=== PATIENT | male | born 1960 | race African-American/Black ===

== ENCOUNTER 2019-06-23 14:08 | Emergency (ER) | payer OTHER ==
--- NOTE | 2019-06-23 14:27 | PDOC ---
Rapid Medical Evaluation Time Seen by Provider: 06/23/19 14:25 Medical Evaluation: 06/23/19 14:25 HPI: 58 y/o w/ PMH of HTN presents with head injury about 9 am this am, now has dizziness and nausea, took motrin at job site PE: No laceration no gross deficits ORDERS: CT and tylenol 06/23/19 14:27 Discharge Disposition - Diagnosis Closed head injury - Referrals - Patient Instructions - Post Discharge Activity
[2019-06-23] MEDS ORDERED: ACETAMINOPHEN 500 MG TABLET (FP) PO ONE (14:28)
[2019-06-23 14:30] VITALS: BP 149/103; PULSE 89; TEMP 97.8; BMI 34.1
[2019-06-23] MEDS ORDERED: ACETAMINOPHEN 500 MG TABLET (FP) ONE (15:16)
--- NOTE | 2019-06-23 16:23 | PDOC ---
History of Present Illness - General Chief Complaint: Injury Stated Complaint: INJURY Time Seen by Provider: 06/23/19 14:25 History Source: Patient Exam Limitations: No Limitations Past History - Travel Traveled outside of the country in the last 30 days: No Close contact w/someone who was outside of country & ill: No - Past Medical History Allergies/Adverse Reactions: Allergies Allergy/AdvReac Type Severity Reaction Status Date / Time Penicillins Allergy Verified 06/23/19 14:27 Home Medications: Ambulatory Orders Hydrochlorothiazide [Hctz -] 25 mg PO DAILY 06/23/19 Losartan Potassium [Cozaar -] 50 mg PO DAILY 06/23/19 Verapamil HCl [Verapamil ER] 240 mg PO DAILY 06/23/19 - Psycho Social/Smoking Cessation Hx Smoking History: Never smoked Review of Systems - Review of Systems Able to Perform ROS?: Yes Comments:: 06/23/19 16:39 CONSTITUTIONAL: Absent: fever, chills, diaphoresis, generalized weakness, malaise, loss of appetite HEENT: Absent: rhinorrhea, nasal congestion, throat pain, throat swelling, difficulty swallowing, mouth swelling, ear pain, eye pain, visual Changes CARDIOVASCULAR: Absent: chest pain, loss of consciousness, palpitations, irregular heart rate, peripheral edema RESPIRATORY: Absent: cough, shortness of breath, dyspnea with exertion, orthopnea, wheezing, stridor, hemoptysis GASTROINTESTINAL: Absent: abdominal pain, abdominal distension, nausea, vomiting, diarrhea, constipation, melena, hematochezia GENITOURINARY: Absent: dysuria, frequency, urgency, hesitancy, hematuria, flank pain, genital pain MUSCULOSKELETAL: Absent: myalgia, arthralgia, joint swelling SKIN: Absent: rash, itching, pallor NEUROLOGIC: Present: headache, dizziness Absent: focal weakness or paresthesias, dizziness, unsteady gait, seizure, mental status changes, bladder or bowel incontinence PSYCHIATRIC: Absent: anxiety, depression, suicidal or homicidal ideation, hallucinations. Is the patient limited Ukrainian proficient: No *Physical Exam - Vital Signs Last Vital Signs Temp Pulse Resp BP Pulse Ox 97.8 F 89 18 149/103 H 98 06/23/19 14:28 06/23/19 14:28 06/23/19 14:28 06/23/19 14:28 06/23/19 14:28 - Physical Exam 06/23/19 16:40 GENERAL: Well developed, well nourished. Awake and alert. No acute distress. HEENT: Normocephalic, atraumatic. PERRLA, EOMI. No conjunctival pallor. Sclera are non- icteric. Moist mucous membranes. Oropharynx is clear. NECK: Supple. Full ROM. No lymphadenopathy. CARDIOVASCULAR: Regular rate and rhythm. No murmurs, rubs, or gallops. Distal pulses are 2+ and symmetric. PULMONARY: No evidence of respiratory distress. Lungs clear to auscultation bilaterally. No wheezing, rales or rhonchi. ABDOMINAL: Soft. Non-tender. Non-distended. No rebound or guarding. No organomegaly. Normoactive bowel sounds. MUSCULOSKELETAL Normal range of motion at all joints. No bony deformities or tenderness. No CVA tenderness. EXTREMITIES: No cyanosis. No clubbing. No edema. No calf tenderness. SKIN: Warm and dry. Normal capillary refill. No rashes. No jaundice. NEUROLOGICAL: Alert, awake, appropriate. Cranial nerves 2-12 intact. No deficits to light touch and temperature in face, upper extremities and lower extremities. No motor deficits in the in face, upper extremities and lower extremities. Normoreflexic in the upper and lower extremities. Normal speech. Toes are down-going bilaterally. Gait is normal without ataxia. PSYCHIATRIC: Cooperative. Good eye contact. Appropriate mood and affect. ED Treatment Course - Medications Given in the ED: ED Medications Discontinued Medications Generic Name Dose Route Start Last Admin Trade Name Freq PRN Reason Stop Dose Admin Acetaminophen 1,000 mg 06/23/19 14:28 06/23/19 15:16 Tylenol - PO 06/23/19 14:29 1,000 mg ONCE ONE Administration Medical Decision Making - Medical Decision Making 06/23/19 16:41 Patient is a 58-year-old male no past medical history who presents to the ER today with dizziness, lightheadedness and headache after an injury at work. He states that a piece of aluminum scaffolding fell on his head. He was wearing a safety helmet. He notes that he is now feeling dizzy, lightheaded and foggy. Denies loss of consciousness, blood thinner use, weakness. A/P: Head injury On exam patient is neurologically intact with no focal deficits. No lacerations noted. Head CT ordered from [facility] shows no evidence of acute intracranial pathology or fractures. Patient likely has a concussion. Discharge home with supportive therapy and primary care follow-up. Strict return precautions given. I discussed the physical exam findings, ancillary test results and final diagnoses with the patient. I answered all of the patient's questions. The patient was satisfied with the care received and felt comfortable with the discharge plan and treatment plan. The Patient agrees to follow up with the primary care physician/specialist within 24-72 hours. Return precautions were given. Discharge - Discharge Information Problems reviewed: Yes Clinical Impression/Diagnosis: Closed head injury Qualifiers: Encounter type: initial encounter Qualified Code(s): S09.90XA - Unspecified injury of head, initial encounter Condition: Stable Disposition: HOME - Admission No - Follow up/Referral - Patient Discharge Instructions Patient Printed Discharge Instructions: DI for Closed Head Injury Additional Instructions: You were evaluated for your head injury today. Your CAT scan showed no acute pathology. You most likely have a concussion. Please rest to help with your symptoms. Do not have excess screen time, or do excess reading. Please follow-up with your primary care doctor this week. If your symptoms are still progressing, you may follow-up with a neurologist. Referral is been provided. Return to the ER for worsening pain, dizziness, loss of consciousness, vomiting or if you have any changes in your symptoms. - Post Discharge Activity Work/Back to School Note: Back to Work
== END 2019-06-23 16:47 | disposition home or self-care (01) ==
LOC: JERFT 14:08
DX: S09.90XA Unspecified injury of head, initial encounter (principal); Z88.0 Allergy status to penicillin; W20.8XXA Other cause of strike by thrown, projected or falling object, initial encounter; Y93.89 Activity, other specified; Y92.89 Other specified places as the place of occurrence of the external cause; Y99.0 Civilian activity done for income or pay
CPT/HCPCS: 70450-TC; 99284-25